=== PATIENT | male | born 1970 | race Caucasian/White ===

== ENCOUNTER 2019-10-20 09:50 | Outpatient (CLI) | payer MEDICARE, MEDICAID ==
--- NOTE | 2019-10-20 10:38 | ULT ---
EXAM: Right upper quadrant ultrasound PROVIDED CLINICAL HISTORY: Right upper quadrant pain COMPARISON: None FINDINGS: Visualized portions of the pancreas appear normal. Liver demonstrates no mass or intrahepatic biliary ductal dilatation. Common duct is nondilated. Gallbladder demonstrates no stones, wall thickening or pericholecystic flu id. The graduate teaching assistant reports a positive sonographic Paiz sign. Right kidney demonstrates no hydronephrosis or mass. IMPRESSION: Positive reported sonographic Paiz's sign. Otherwise unremarkable exam.
== END 2019-10-20 09:51 | disposition home or self-care (01) ==
LOC: MADULT 09:50
PROVIDERS: ATTEND Family Medicine
DX: R10.11 Right upper quadrant pain (principal); R19.8 Other specified symptoms and signs involving the digestive system and abdomen
CPT/HCPCS: 76705

== ENCOUNTER 2024-08-11 10:19 | Emergency (ER) | payer MEDICARE, MEDICAID | END 2024-08-11 11:50 | disposition home or self-care (01) | LOC: MADERS 10:19 | DX: G93.31 Postviral fatigue syndrome (principal); F17.210 Nicotine dependence, cigarettes, uncomplicated | CPT/HCPCS: 71045; 71046 ==